=== PATIENT | male | born 1960 | race Caucasian/White ===

== ENCOUNTER 2017-11-13 15:39 | Emergency (ER) | payer SELFPAY ==
[~2017-11-13] VITALS: Ht 180.3 cm; Wt 83.0 kg
[2017-11-13 15:44] VITALS: BP 142/86; PULSE 82; RESP 16; TEMP 98; O2SAT 98
--- NOTE | 2017-11-13 15:55 | PD ---
HPI Chief Complaint: Injury Time Seen by Provider: 16:01 Travel History International Travel<30 days: No Contact w/Intl Traveler<30days: No Traveled to known affect area: No History of Present Illness HPI 56-year-old male presents to emergency department complaining of left thumb pain for approximately 2 weeks. Patient states that he was installing a wooden- framed window when it fell on his thumb resulting in this injury. Patient states that the wound was open and did end up expressing pus for a few days then stopped. Patient states that initially his entire thumb and thumb base were swollen and painful but has since decreased in size and is localized to the PIP. He says his pain is aching and mild-moderate. He states he is having difficulty moving his thumb because of the pain. Denies numbness or tingling. Denies fever or chills. Denies chronic medical issues chronic medication use. PFSH Social History Alcohol Use: No Tobacco Use: Yes (1PPD) Substance Use: No Allergies-Medications (Allergen,Severity, Reaction): Coded Allergies: Penicillins (Verified Allergy, Unknown, 11/13/17) Reported Meds & Prescriptions Reported Meds & Active Scripts Active Clindamycin (Clindamycin HCl) 300 Mg Cap 300 Mg PO TID 7 Days Review of Systems Except as stated in HPI: all other systems reviewed are Neg Physical Exam Narrative GENERAL: WD WN in NAD SKIN: Warm and dry. HEAD: Normocephalic. EYES: No scleral icterus. No injection or drainage. NECK: Supple, trachea midline. No JVD or lymphadenopathy. CARDIOVASCULAR: Regular rate and rhythm without murmurs, gallops, or rubs. RESPIRATORY: Breath sounds equal bilaterally. No accessory muscle use. GASTROINTESTINAL: Abdomen soft, non-tender, nondistended. MUSCULOSKELETAL: No cyanosis, or edema. Left thumb- edematous with mild erythema over the PIP. Fluctuance versus edema. No expression of pus. No central area of fluctuance or induration. BACK: Nontender without obvious deformity. No CVA tenderness. Data Data Last Documented VS Vital Signs Date Time Temp Pulse Resp B/P (MAP) Pulse Ox O2 Delivery O2 Flow Rate FiO2 11/13/17 15:44 98.0 82 16 142/86 (104) 98 Orders Orders Hand, Complete ([id number]) (11/13/17 ) Clindamycin Inj (Cleocin Inj) (11/13/17 16:00) Clindamycin (Cleocin) (11/13/17 16:15) Tetanus/Diphtheria Tox Adult (Tetanus/Di (11/13/17 17:15) Mandatory Outpatient Referral (11/13/17 17:22) Ed Discharge Order (11/13/17 17:25) [facility] Medical Decision Making Medical Screen Exam Complete: Yes Emergency Medical Condition: Yes Differential Diagnosis left thumb Abscess, cellulitis, septic arthritis Narrative Course 56-year-old male presents to emergency department complaining of left thumb pain for approximately 2 weeks. Patient states that he was installing a wooden- framed window when it fell on his thumb resulting in this injury. Patient states that the wound was open and did end up expressing pus for a few days then stopped. Patient states that initially his entire thumb and thumb base were swollen and painful but has since decreased in size and is localized to the PIP. He says his pain is aching and mild-moderate. He states he is having difficulty moving his thumb because of the pain. He is here today because he has the day off and his girlfriend made him come here. Denies numbness or tingling. Denies fever or chills. Denies chronic medical issues chronic medication use. Pt is right-handed. Vital signs stable. Physical exam findings consistent with cellulitis of the thumb. Limited range of motion of the DIP secondary to pain. Mandatory referral is placed for hand specialist. Clindamycin administered in the ED. Pt will be discharged with Clindamycin. Advised to return to the ED for worsening or persistent symptoms. Meilishuo information given. Procedures Procedure Narrative Digital block was performed to evaluate the relief pain. Diagnosis Primary Impression: Cellulitis Qualified Codes: L03.012 - Cellulitis of left finger Referrals: Hand Surgeon Additional Instructions: Use ice or heat for symptom relief. Elevate the joint above the heart to reduce swelling. You may use compression with Eriberto wrap or similar to reduce swelling. If symptoms persist or worsen, return to the emergency department. Follow up with your primary care physician within 2 days. Take all medication as prescribed. Scripts Clindamycin (Clindamycin) 300 Mg Cap 300 MG PO TID for Infection for 7 Days, #21 CAP 0 Refills Prov: Madiha Bryant MD 11/13/17 Disposition: 01 DISCHARGE HOME Condition: Stable Awilda Lindsey Nov 13, 2017 15:55
[2017-11-13] MEDS ORDERED: CLINDAMYCIN PHOS 600 MG/4 ML VIAL IM ONE (16:00)
[2017-11-13] MEDS ORDERED: CLINDAMYCIN 150 MG CAP PO ONE (16:15)
--- NOTE | 2017-11-13 16:28 | RADRPT ---
EXAM DATE/TIME: 11/13/2017 16:07 [facility] COMPARISON: No previous studies available for comparison. INDICATIONS : Trauma to thumb. MEDICAL HISTORY : None. SURGICAL HISTORY : None. ENCOUNTER: Initial ACUITY: 2 weeks PAIN SCORE: 5/10 LOCATION: Left upper extremity first digit. FINDINGS: 3 views of the left hand. Bone alignment within normal limits. No evidence of fracture. Small osteop hytes of the thumb interphalangeal joint. Palmar soft tissue swelling at the level of the thumb dista l phalanx. Possible small bone erosion the ulnar aspect of the thumb proximal phalanx distal pole. 1 mm radiopaque foreign body in the superficial palmar soft tissues at the level of the thumb MCP joint . CONCLUSION: 1. Palmar soft tissue swelling of the thumb adjacent to the distal phalanx. Possible small distal iesha e proximal phalanx erosion. 2. Mild osteoarthritic findings. 3. No evidence of fracture. 4. Rogelio Walker MD on November 13, 2017 at 16:23 Board Certified Radiologist. This report was verified electronically.
[2017-11-13] MEDS ORDERED: TETANUS/DIPHTHERIA TOXOID ADULT 0.5 ML VIAL IM ONE (17:15)
[2017-11-13] MEDS ORDERED: CLIN300C5 PO (17:24)
== END 2017-11-13 17:35 | disposition home or self-care (01) ==
LOC: PHEFT 15:39
DX: L03.012 Cellulitis of left finger (principal); F17.200 Nicotine dependence, unspecified, uncomplicated; Z23 Encounter for immunization
CPT/HCPCS: 64450; 73130; 90471; 90714